=== PATIENT | male | born 1940 | race Caucasian/White ===

== ENCOUNTER 2021-06-06 14:57 | Inpatient (IN) | payer MEDICARE, BC ==
[~2021-06-06] VITALS: Ht 185.4 cm; Wt 113.3 kg
[~2021-06-06 14:57] MED LIST: AMBIEN 10MG10 MG PO; ASPIRIN E.C.325 MG PO; AVODART 0.5MG0.5 MG PO; CRESTOR20 MG PO; DIOVAN HCT PO; DIOVAN160 MG PO; MAXIDE PO; MAXZIDE PO; NASONEX SPRAY; PRILOSEC PO; SUDAFED 12HR120 MG PO; TRICOR145 MG PO; TYLENOL 325MG325 MG PO; VICODIN 5/5001 UDTAB PO
[2021-06-12] VITALS (10 sets, daily range): BP systolic 92–146; BP diastolic 56–80; PULSE 72–94; TEMP 97.5–98.1
[2021-06-12] MEDS ORDERED: ZYLOPRIM 300MG300 MG PO (11:25)
[2021-06-12] MEDS ORDERED: BENICAR HCT 12.1 TA1 PO (11:26)
[2021-06-12] MEDS ORDERED: COREG12.5 MG PO (11:27)
[2021-06-12] MEDS ORDERED: PROSCAR 5MG5 MG PO (11:27)
[2021-06-12] MEDS ORDERED: CRESTOR5 MG PO (11:28)
[2021-06-12] MEDS ORDERED: VASCEPA1 GM PO (11:29)
[2021-06-12] MEDS ORDERED: FLONASE NASAL S16 GM NS (11:29)
[2021-06-12] MEDS ORDERED: OSTEO-BI-FLEX 21 TAB PO (11:30)
[2021-06-12] MEDS ORDERED: CRANBERRY250 MG PO (11:31)
--- NOTE | 2021-06-12 18:36 | NUR ---
PT recently arrived to the floor from [facility]. He is alert and oriented with some pain complaints with movement and cough. Pt incisions all well approximated, gauze at transverse incision is CDI. Randall to dependent drainage. Oriented him to his room. Pt has 2 daughters present in the room. SCDs on bilaterally. IV to left forearm with fluids infusing. Gave pt some ice water and jello. Educated no straws and no carbonation.
--- NOTE | 2021-06-12 21:00 | NUR ---
PT IN BED. IS ALERT AND ORIENTED X4. HAS IVF TO LEFT WRIST INFUSING WITHOUT REDNESS OR SWELLING. AUGUSTINE TO BSD WITH YELLOW URINE. DENIES PAIN. ABD SOFT, BANDAIDS X5 WITH LOW TRANSVERSE DRSG INTACT. DENIES PASSING GAS AT THIS TIME.
[2021-06-13] VITALS (7 sets, daily range): BP systolic 99–138; BP diastolic 57–82; PULSE 79–102; TEMP 97.9–98.5
--- NOTE | 2021-06-13 01:00 | NUR ---
PT TAKES SCHEDULED MEDS WITHOUT PROBLEM. DENIES NAUSEA, RESTING WELL.
[2021-06-13 05:59] LABS: BASO % 0.2 % (0.0-2.0); EOS % 0.2 % (0.0-4.0); GRAN # 6.2 K/mm3 (1.4-6.5); GRAN % 67.4 % (42.2-75.2); HEMATOCRIT 39.2 % (42.0-52.0); HEMOGLOBIN 12.7 g/dl (13.5-18.0); LYMPH # 2.2 K/mm3 (1.2-3.4); LYMPH % 23.8 % (20.0-51.0); MEAN CELL VOLUME 87 fl (80.0-100.0); MEAN CORPUSCULAR HEMOGLOBIN 28 pg (27-31); MEAN CORPUSCULAR HGB CONC 32 g/dl (33.0-37.0); MEAN PLATELET VOLUME 10.8 fl (7.4-10.4); MONO # 0.7 K/mm3 (0.1-0.6); MONO % 7.9 % (1.7-9.3); PLATELET COUNT 184 K/mm3 (130-400); RED BLOOD COUNT 4.51 M/mm3 (4.20-5.60); REDCELL DISTRIBUTION WIDTH-CV 14.5 % (11.5-14.5)
--- NOTE | 2021-06-13 06:00 | NUR ---
PT AWAKE, MEDICATED WITH SCHEDULED AM MEDS. IVF CONTINUE TO LEFT WRIST. PT REPORTS PASSING GAS THIS MORNING.
[2021-06-13 06:18] LABS: CALCIUM 8.5 mg/dL (8.4-10.2); CREATININE, serum 2.01 mg/dL (0.72-1.25); POTASSIUM 3.6 mmol/L (3.5-4.5)
--- NOTE | 2021-06-13 08:30 | NUR ---
pt doing well this morning, minimal pain complaints. Assisted pt with ordering some breakfast. Randall catheter removed per order. Educated pt on plan for the day as well as activity. Assisted pt up to the chair at this time. pt did well
--- NOTE | 2021-06-13 10:26 | NUR ---
Initial visit; Patient and his daughter thanked Straw Boss for looking in on him and joking with him. Patient doing better. Straw Boss offered God's blessings.
--- NOTE | 2021-06-13 11:15 | NUR ---
machine clothing worker met with patient to discuss discharge plan. Patient's daughter Ary ([phone]) present at bedside. Patient reports that he lives at home alone in [place], [place]. Patient reports to being fully independent with his ADL's and does not utilize any DME to assist with mobility. Patient has no home oxygen needs. PCP is Dr. Juarez and he utilizes [facility] for medication. Patient states that he does have a [employer] established listing his two daughters Emilie ([phone]) and Ary listed as his agents. Patient is planning on returning home with no concerns. Discharge plan: Home with family
--- NOTE | 2021-06-13 12:37 | NUR ---
Called [facility] and notified them that pt does not have IS yet
--- NOTE | 2021-06-13 13:47 | NUR ---
Pt tolerating low fiber diet with no complaints of nausea or vomiting. Pt has been up ambulating in the halls, pain is tolerable. Pt does not feel like he needs to urinate. Assisted him to the restroom to have him try. He was able to void a small amount. Pts daughter has remained with him throughout the day. pt denies any needs, call light within reach
[2021-06-13] MEDS ORDERED: NORCO 325 MG-51 TAB PO (17:36)
--- NOTE | 2021-06-13 20:00 | NUR ---
PATIENT IS A&O. VSS. NO C/O PAIN OR NAUSEA. TOLERATING LOW FIBER DIET. HS MEDS GIVEN PER ORDERS. HEAD TO TOE ASSESSMENT COMPLETE. ABD LAP SITES X6 ARE CD&I. PATIENT IS PASSING GAS AND HAD A BM. INDEPENDENT IN ROOM. LEFT WRIST IV TO INT.PATIENT HOPING TO DISCHARGE HOME TOMORROW. NO OTHER NEEDS. CALL LIGHT IN REACH.
[2021-06-14 04:00] VITALS: BP 116/59; PULSE 32; PULSE 91; TEMP 99.1
[2021-06-14 06:19] LABS: BASO % 0.4 % (0.0-2.0); EOS # 0.1 K/mm3 (0.0-0.7); EOS % 0.6 % (0.0-4.0); GRAN # 5.8 K/mm3 (1.4-6.5); GRAN % 72.2 % (42.2-75.2); HEMOGLOBIN 12.8 g/dl (13.5-18.0); LYMPH # 1.5 K/mm3 (1.2-3.4); LYMPH % 18.8 % (20.0-51.0); MEAN CELL VOLUME 86 fl (80.0-100.0); MEAN CORPUSCULAR HEMOGLOBIN 28 pg (27-31); MEAN CORPUSCULAR HGB CONC 33 g/dl (33.0-37.0); MEAN PLATELET VOLUME 10.9 fl (7.4-10.4); MONO # 0.6 K/mm3 (0.1-0.6); MONO % 7.5 % (1.7-9.3); PLATELET COUNT 161 K/mm3 (130-400); RED BLOOD COUNT 4.53 M/mm3 (4.20-5.60); REDCELL DISTRIBUTION WIDTH-CV 14.2 % (11.5-14.5)
[2021-06-14 06:36] LABS: CALCIUM 8.9 mg/dL (8.4-10.2); CREATININE, serum 1.7 mg/dL (0.72-1.25); POTASSIUM 3.4 mmol/L (3.5-4.5)
--- NOTE | 2021-06-14 07:30 | NUR ---
Assumed care for day shift. Assessment complete. A&Ox3. Denies pain/nausea/shortness of breath. VS stable. Tolerated breakfast. Lap sites [id number]. Low transverse incision with medipore/gauze-CDI. +flatus/+BM. Voiding well. Plan of care discussed for this shift to include meds/calling for questions/concerns/pain. Verbalizes understanding/denies needs. Call light in reach. Will monitor.
[2021-06-14 07:39] VITALS: BP 125/69; PULSE 97; TEMP 98.2
--- NOTE | 2021-06-14 11:47 | NUR ---
Report from PCT of blood pressure of 100s/60s. Patient sitting up in bed watching TV. Denies dizziness/lightheadedness. Did receive AM hypertension meds as scheduled with blood pressures 125/69. Denies questions/concerns. Call light in reach. Will monitor.
[2021-06-14 12:00] VITALS: BP 100/60; PULSE 78; TEMP 98.1
--- NOTE | 2021-06-14 15:04 | NUR ---
Up to ambulate in the hallway. Ambulated approx 600ft. Tolerated well-steady gate.
[2021-06-14 16:00] VITALS: BP 114/82; PULSE 65; TEMP 98.6
--- NOTE | 2021-06-14 18:20 | NUR ---
Discharge instructions given both verbal and handwritten to patient and daughter. Discussed f/u appt, s/s of infection, home medications and discharge instructions per dr order. Verbalizes understanding/denies questions/concerns. INT to left hand DCd-cath intact. VS have remained stable. Escorted off oliveira in wheelchair by daughter and [facility] in stable condition.
== END 2021-06-14 18:20 | disposition home or self-care (01) | DRG 331 ==
LOC: INPTSU 06-12 09:39 → SURG 06-12 09:39
PROVIDERS: ADMIT Surgery
PROC: 8E0W4CZ Robotic Assisted Procedure of Trunk Region, Percutaneous Endoscopic Approach (ICD-10-PCS; 2021-06-12)
PROC: 0DTL4ZZ Resection of Transverse Colon, Percutaneous Endoscopic Approach (ICD-10-PCS; principal; 2021-06-12 12:00)
DX: K63.5 Polyp of colon (principal); Z20.822 Contact with and (suspected) exposure to COVID-19
CPT/HCPCS: A4314; A9284; J0690; J1650; J1885; J2370; J2405; J2704; J3010; J7050; J7120